=== PATIENT | female | born 1985 | race Caucasian/White ===

== ENCOUNTER 2017-02-27 09:26 | Emergency (ER) | payer OTHER ==
[~2017-02-27] VITALS: Ht 154.9 cm; Wt 67.3 kg
[2017-02-27 09:59] LABS: INFLUENZA A ANTIGEN None Detected (None Detect); INFLUENZA B ANTIGEN None Detected (None Detect)
[2017-02-27 10:05] LABS: ABSOLUTE EOSINOPHILS 0.2 thou/uL (0.0-0.7); ABSOLUTE LYMPHOCYTES 1.4 thou/uL (0.8-5.3); ABSOLUTE MONOCYTES 0.8 thou/uL (0.0-1.2); BASOPHILS 0.4 %; EOSINOPHILS 1.5 %; HEMATOCRIT 35.2 % (37.0-47.0); HEMOGLOBIN 11.9 gm/dL (12.0-15.0); LYMPHOCYTES 11.1 %; MCHC 33.9 g/dL (28.0-37.0); MCV 82.5 fL (80.0-100.0); MONOCYTES 6.2 %; NUCLEATED RBCS 0 /100WBC; PLATELET COUNT* 288 thou/uL (150-400); POLYS 80.8 %; RBC 4.27 mil/uL (4.20-5.00); RDW-CV 14.3 % (10.5-14.5); WBC 12.3 thou/uL (4.0-11.0)
[2017-02-27 10:15] LABS: ANION GAP 9 mmol/L (7-16); BUN 8 mg/dL (7-18); CALCIUM 8.9 mg/dL (8.5-10.1); CHLORIDE 105 mmol/L (98-107); CO2 24 mmol/L (21-32); CREATININE 0.7 mg/dL (0.6-1.3); GLUCOSE 99 mg/dL (70-99); POTASSIUM 3.5 mmol/L (3.5-5.1); SODIUM 138 mmol/L (136-145)
[2017-02-27 10:30] LABS: ALBUMIN 3.3 g/dL (3.4-5.0); ALKALINE PHOSPHATASE 102 U/L (46-116); NT-PRO BRAIN NAT PEPTIDE 127 pg/mL (<300); SGOT 18 U/L (15-37); SGPT 22 U/L (30-65); TOTAL BILIRUBIN 0.4 mg/dL (<0.1-1.0); TOTAL PROTEIN 7.4 g/dL (6.4-8.2); TROPONIN-I LEVEL <0.06 ng/mL (<0.06)
[2017-02-27] MEDS ORDERED: MEDROL DOSPAK21 TA1 PO (11:40)
[2017-02-27] MEDS ORDERED: AMOXICILLIN500 M1 PO (11:40)
[2017-02-27] MEDS ORDERED: VENTOLIN HFA 1818 GM INH (11:40)
[2017-02-27 11:41] VITALS: BP 161/94
--- NOTE | 2017-02-28 16:18 | EKG ---
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
== END 2017-02-27 11:49 | disposition home or self-care (01) ==
LOC: M.ERS 09:26
PROVIDERS: Emergency Medicine
DX: J02.0 Streptococcal pharyngitis (principal); J40 Bronchitis, not specified as acute or chronic; F32.9 Major depressive disorder, single episode, unspecified

== ENCOUNTER 2018-09-28 18:43 | Emergency (ER) | payer BC ==
[~2018-09-28] VITALS: Ht 152.4 cm; Wt 68.0 kg
[~2018-09-28 18:43] MED LIST: AMOXICILLIN500 M1 PO; MEDROL DOSPAK21 TA1 PO; VENTOLIN HFA 1818 GM INH
[2018-09-28 18:56] VITALS: BP 128/77
[2018-09-28] MEDS ORDERED: CELEXA20 MG PO (18:59)
[2018-09-28] MEDS ORDERED: TESSALON PERLE100 MG PO (19:21)
== END 2018-09-28 19:33 | disposition home or self-care (01) ==
LOC: M.ERS 18:43
DX: J06.9 Acute upper respiratory infection, unspecified (principal); F32.9 Major depressive disorder, single episode, unspecified

== ENCOUNTER 2018-10-09 17:58 | Emergency (ER) | payer BC ==
[~2018-10-09] VITALS: Ht 152.4 cm; Wt 72.6 kg
[~2018-10-09 17:58] MED LIST changes: +CELEXA20 MG PO; +TESSALON PERLE100 MG PO
[2018-10-09] MEDS ORDERED: ZPAK PO (19:15)
[2018-10-09] MEDS ORDERED: PREDNISONE 20 M20 M1 PO (19:15)
[2018-10-09] MEDS ORDERED: PROAIR HFA8.5 GM INH (19:16)
[2018-10-09 19:28] VITALS: BP 127/83
== END 2018-10-09 19:28 | disposition home or self-care (01) ==
LOC: M.ERS 17:58
DX: J18.9 Pneumonia, unspecified organism (principal); F32.9 Major depressive disorder, single episode, unspecified